=== PATIENT | male | born 1990 | race African-American/Black ===

== ENCOUNTER 2016-08-02 19:55 | Emergency (ER) | payer OTHER, MEDICARE ==
[~2016-08-02] VITALS: Ht 172.7 cm; Wt 168.3 kg
[2016-08-02 19:55] VITALS: BP 143/83
[~2016-08-02 19:55] MED LIST: ALBU1.25 NEB; ALBUTEROL INHALER INH; AMOX500C PO; FERR325C PO; FLUT1DIS3 IH; HYDR-971 PO; MULT-245 PO; ONDA4TAB10 PO; POTA10TA PO; PRED50TA PO
--- NOTE | 2016-08-02 20:18 | PHYS DOC ---
General Chief Complaint: SORE THROAT Stated Complaint: SORE THROAT SOA Time Seen by MD: 20:00 Source: patient Problems: History of Present Illness Initial Comments Patient with a female friend for "flu symptoms." Patient says that since early this morning is felt hot and cold. Is not actually take his temperature. He's had a runny nose productive of yellow mucus and cough productive of yellow sputum. He has some sore throat. There is no real earache. He has no chest pain or shortness of breath with this. There is some nausea with decreased by mouth intake but no vomiting. His no abdominal pain. There is no change amount or bladder habits except for slight amount of diarrhea this morning. He denies any focal extremity or neurologic complaints. He does have diffuse myalgias and body aches. Patient's taken some Alexsandra-Dewey and Robitussin for this at home with some help. There is no other increasing or decreasing factors. There is no known sick contacts at home. Patient's past nuchal history is Kirsten for gastric bypass surgery 2 years ago. He says he lost 200 pounds. He is a nonsmoker and nonuser of ethanol. Allergies: Coded Allergies: No Known Drug Allergies (Unverified , 08/13/13) Past Medical History Surgical History: gastric bypass Social History Smoker: non-smoker Alcohol: none Review of Systems All Other Systems: Reviewed and Negative Physical Exam General Appearance: WD/WN, no apparent distress Ear, Nose, Throat: normal ENT inspection, normal pharynx Neck: full range of motion, supple, normal inspection Respiratory: lungs clear, normal breath sounds, no respiratory distress Cardiovascular: regular rate, rhythm, no edema Gastrointestinal: non tender, soft, other Back: no CVA tenderness, no vertebral tenderness Extremities: non-tender, normal inspection, no pedal edema Neurologic/Psychiatric: no motor/sensory deficits, alert, normal mood/affect, oriented x 3 Skin: normal color Lymphatic: no adenopathy Comments Generally this is a morbidly obese black male in no acute distress. Vitals are as noted. Pertinent findings on physical exam shows ears and throat to be grossly clear. The nose is clear. Neck is supple without adenopathy or JVD. There's no meningeal signs. Chest is clear to auscultation bilaterally. Cardiovascular exam shows regular rate and rhythm without murmur. Back shows no CVA tenderness. Abdomen shows minimally morbidly obese as noted. There is no masses organomegaly or perineal findings. Extremities are clear. Patient is awake alert oriented and cooperative. Remainder of physical exam is clinically unremarkable. Orders, Labs, Meds Old charts notes several prior ER visits for strep pharyngitis, URI, asthma, chest pain, and fever with headache. Influenza A and flu swabs are negative. 2130 Patient resting comfortably in the ED. I discussed with the patient and his female friend most likely diagnosis sinusitis and bronchitis. He does have some purulent sputum and I think it's reasonable to get him started on some antibiotics. We'll also prescribe some Tussionex for cough and cold symptoms. Because the pharmacies are closed, we will give him first doses before he leaves the ER tonight. We also discussed additional home care including rest, increasing fluids, use of Advil or Tylenol as needed for fever or pain. He voices understanding of the need to follow up with primary care or return to the ER sooner as needed if worsen anyway. He looks well, in no acute discomfort distress, okay for discharge home at this time. BOBBY WHEAT MD Aug 02, 2016 20:18
[2016-08-02 21:14] LABS: INFLUENZA A PATIENT NEGATIVE (NEGATIVE); INFLUENZA B PATIENT NEGATIVE (NEGATIVE)
[2016-08-02] MEDS: HYDROCODONE/CHLORPHEN POLIS 5 ML SUS.ER.12H. PO ONE (21:45)
[2016-08-02] MEDS: AZITHROMYCIN 250 MG TABLET. PO ONE (21:45)
== END 2016-08-02 21:51 | disposition home or self-care (01) ==
LOC: ER 19:58
DX: J02.9 Acute pharyngitis, unspecified (principal); R09.89 Other specified symptoms and signs involving the circulatory and respiratory systems; R05 Cough; M79.1 Myalgia; Z98.84 Bariatric surgery status
CPT/HCPCS: 87070; 87804; 87880; 99284; J0456

== ENCOUNTER → 2017-03-09 | Outpatient (CLI) | payer OTHER ==
--- NOTE | 2017-03-09 15:30 | RAD ---
EXAM: Left foot 3 views. HISTORY: Left foot pain about the 5th toe. COMPARISON: None. FINDINGS: There is a wire-like foreign body within the plantar soft tissues underlying the 3rd metatarsal. It measures 6 mm in length. There appear to be chronic healed fracture deformities of the 4th and 5th metatarsals. No acute fractures are seen. Joint spaces and alignment are maintained. IMPRESSION: 1. 6 mm wire-like foreign body within the plantar soft tissues underlying the 3rd metatarsal.
== END | disposition home or self-care (01) ==
LOC: DXRAD 11:10
PROVIDERS: ATTEND Physician Assistant
DX: M79.5 Residual foreign body in soft tissue (principal); M79.672 Pain in left foot
CPT/HCPCS: 73630

== ENCOUNTER 2017-07-28 09:24 | Emergency (ER) | payer OTHER ==
[~2017-07-28] VITALS: Ht 172.7 cm; Wt 179.2 kg
[2017-07-28 10:02] LABS: BILIRUBIN,URINE NEG (NEG); CLARITY,URINE TURBID; COLOR,URINE PINK; GLUCOSE,URINE NEG (NEG)
[2017-07-28 10:03] LABS: BACTERIA,URINE MOD /HPF (0-FEW); NITRITE,URINE NEG (NEG); RBC,URINE >40 /HPF (0-2); SQUAMOUS EPITHELIAL CELL,UR OCC /LPF; UROBILINOGEN,URINE 0.2 mg/dL (0.2 mg/dL); WBC,URINE >40 /HPF (0-4)
[2017-07-28] MEDS ORDERED: cefTRIAXone IM 1 GM VIAL IM ONE (10:30)
[2017-07-28] MEDS ORDERED: CIPR250T30 PO (10:31)
--- NOTE | 2017-07-28 10:31 | PHYS DOC ---
Past History Past Medical History: Other Past Surgical History: No Surgical History Smoking: Non-smoker Alcohol Use: None Drug Use: None Adult General Chief Complaint Chief Complaint: BLOOD IN URINE HPI HPI 27-year-old male patient complaining of urinary frequency and dysuria for the last 1 week and hematuria since this morning without fever and chills, flank and abdominal pain. Patient denies history of UTI, STD, penile discharge, new sexual partner. Review of Systems Review of Systems Constitutional: Denies fever or chills [] Eyes: Denies change in visual acuity, redness, or eye pain [] HENT: Denies nasal congestion or sore throat [] Respiratory: Denies cough or shortness of breath [] Cardiovascular: No additional information not addressed in HPI [] GI: Denies abdominal pain, nausea, vomiting, bloody stools or diarrhea [] : Reports urinary frequency and dysuria and hematuria Musculoskeletal: Denies back pain or joint pain [] Integument: Denies rash or skin lesions [] Neurologic: Denies headache, focal weakness or sensory changes [] Endocrine: Denies polyuria or polydipsia [] All other systems were reviewed and found to be within normal limits, except as documented in this note. Current Medications Current Medications Current Medications Medications (Trade) Dose Ordered Sig/Aristeo Start Time Stop Time Status Last Admin Dose Admin Ceftriaxone Sodium (Rocephin Im) 1 gm 1X ONCE 07/28/17 10:30 07/28/17 10:31 Allergies Allergies Allergies Coded Allergies Type Severity Reaction Last Updated Verified No Known Drug Allergies 08/13/13 No Physical Exam Physical Exam Constitutional: Well developed, well nourished, no acute distress, non-toxic appearance, morbidly obese. [] HENT: Normocephalic, atraumatic Eyes: PERRLA, EOMI, conjunctiva normal, no discharge. [] Neck: Normal range of motion, no tenderness, supple, no stridor. [] Cardiovascular:Heart rate regular rhythm, no murmur [] Lungs & Thorax: Bilateral breath sounds clear to auscultation [] Abdomen: Bowel sounds normal, soft, no tenderness, no masses, no pulsatile masses. 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 [] Back: No tenderness, no CVA tenderness. [] Extremities: No tenderness, no cyanosis, no clubbing, ROM intact, no edema. [] Neurologic: Alert and oriented X 3, normal motor function, normal sensory function, no focal deficits noted. [] Psychologic: Affect normal, judgement normal, mood normal. [] Current Patient Data Vital Signs Vital Signs Date Time Temp Pulse Resp B/P (MAP) Pulse Ox O2 Delivery O2 Flow Rate FiO2 07/28/17 09:45 98.4 104 22 98 Lab Results Laboratory Tests Test 07/28/17 09:45 Urine Collection Type Void Urine Color Sophia Urine Clarity Turbid Urine pH 6.0 Urine Specific [place] 1.025 Urine Protein 100 mg/dl (NEG-TRACE) Urine Glucose (UA) Neg mg/dL (NEG) Urine Ketones (Stick) Neg mg/dL (NEG) Urine Blood Large (NEG) Urine Nitrite Neg (NEG) Urine Bilirubin Neg (NEG) Urine Urobilinogen Dipstick 0.2 mg/dL (0.2 mg/dL) Urine Leukocyte Esterase Mod (NEG) Urine RBC >40 /HPF (0-2) Urine WBC >40 /HPF (0-4) Urine Squamous Epithelial Cells Occ /LPF Urine Bacteria Mod /HPF (0-FEW) EKG EKG [] Radiology/Procedures Radiology/Procedures [] Course & Med Decision Making Course & Med Decision Making Pertinent Labs reviewed. (See chart for details) discharge: I've spoken with the patient and/or caregivers. I've explained the patient's condition, diagnosis and treatment plan based on information available to me at this time. I've answered the patient's and/or caregivers questions and addressed any concerns. The patient and/or caregivers have a good understanding the patient's diagnosis, condition and treatment plan as can be expected at this point. Vital signs have been stabilized. The patient's condition is stable for discharge from the emergency department. The patient will pursue further outpatient evaluation with her primary care provider or other designated consulting physician as outlined in the discharge instructions. Patient and/or caregivers are agreeable to this plan of care and follow-up instructions have been explained in detail. The patient and/or caregivers have received these instructions in written format and expressed understanding of these discharge instructions. The patient and her caregivers are aware that if any significant change in condition or worsening of symptoms should prompt him to immediately return to this of the closest emergency department. If an emergent department is not readily available I would encourage him to call 911. [] Dragon Disclaimer Dragon Disclaimer This electronic medical record was generated, in whole or in part, using a voice recognition dictation system. Departure Departure: Impression: Primary Impression: Urinary tract infection Additional Impressions: Acute hemorrhagic cystitis Morbid obesity Disposition: HOME, SELF-CARE (at 10:30) Condition: STABLE Referrals: CHECO WILLARD (PCP) Patient Instructions: Hematuria, Adult, Urinary Tract Infection Additional Instructions: Drink plenty of liquids Follow-up with your primary care physician in 3-5 days Return to ER if not getting better Scripts Ciprofloxacin Hcl (CIPRO) 250 Mg Tablet 1 TAB PO BID, #14 TAB Prov: ETTA CURRY MD 07/28/17 Problem Qualifiers ETTA CURRY MD Jul 28, 2017 10:31
[2017-07-28 10:44] VITALS: BP 130/84
== END 2017-07-28 10:45 | disposition home or self-care (01) ==
LOC: ER 09:24
DX: N30.01 Acute cystitis with hematuria (principal); E66.01 Morbid (severe) obesity due to excess calories; Z68.44 Body mass index [BMI] 60.0-69.9, adult
CPT/HCPCS: 81001; 87086; 96372; 99284; J0696; 87186

== ENCOUNTER 2017-08-17 19:44 | Emergency (ER) | payer OTHER ==
[~2017-08-17] VITALS: Ht 172.7 cm; Wt 179.2 kg
[~2017-08-17 19:44] MED LIST changes: +CIPR250T30 PO
[2017-08-17] MEDS ORDERED: KETOROLAC 30 MG/ML VIAL. IV ONE (20:15)
[2017-08-17] MEDS ORDERED: IV NORMAL SALINE 1,000ML 1,000 ML IV SCH (20:15)
[2017-08-17 21:15] LABS: BASO % 0 % (0-3); EOS # 0.4 x10^3/uL (0.0-0.7); EOS % 4 % (0-3); HEMATOCRIT 39.9 % (39.0-53.0); HEMOGLOBIN 12.8 g/dL (13.0-17.5); LYMPH # 2.5 x10^3/uL (1.0-4.8); LYMPH % 27 % (24-48); MEAN CORPUSCULAR HEMOGLOBIN 25 pg (25-35); MEAN CORPUSCULAR HGB CONC 32 g/dL (31-37); MEAN CORPUSCULAR VOLUME 79 fL (79-100); MONO # 1.3 x10^3/uL (0.0-1.1); MONO % 15 % (0-9); NEUT # 4.9 x10^3uL (1.8-7.7); NEUT % 54 % (31-73); PLATELET COUNT 253 x10^3/uL (140-400); RED BLOOD COUNT 5.07 x10^6/uL (4.30-5.70); RED CELL DISTRIBUTION WIDTH 14.3 % (11.5-14.5); WHITE BLOOD COUNT 9.1 x10^3/uL (4.0-11.0)
[2017-08-17 21:27] LABS: ALBUMIN 3.6 g/dL (3.4-5.0); CALCIUM 9.1 mg/dL (8.5-10.1); CREATININE 0.9 mg/dL (0.7-1.3); GFR 123.4; POTASSIUM 4.4 mmol/L (3.5-5.1); TOTAL BILIRUBIN 0.5 mg/dL (0.2-1.0); TOTAL PROTEIN 7.2 g/dL (6.4-8.2)
[2017-08-17 21:34] LABS: BACTERIA,URINE 0 /HPF (0-FEW); BILIRUBIN,URINE NEG (NEG); CLARITY,URINE CLEAR; COLOR,URINE YELLOW; GLUCOSE,URINE NEG (NEG); NITRITE,URINE NEG (NEG); RBC,URINE 0 /HPF (0-2); SQUAMOUS EPITHELIAL CELL,UR MOD /LPF; UROBILINOGEN,URINE 1 mg/dL (0.2 mg/dL); WBC,URINE OCC /HPF (0-4)
--- NOTE | 2017-08-17 22:45 | RAD ---
INDICATION: left flank and llq abdomen pain, dysuria
no contrast
no abd surgeries COMPARISON: None. TECHNIQUE: Axial CT images obtained through the abdomen and pelvis without contrast. Limited assessment of solid organ structures and vasculature secondary to lack of intravenous contrast. One or more of the following individualized dose reduction techniques were utilized for this examination: 1. Automated exposure control; 2. Adjustment of the mA and/or kV according to patient size; 3. Use of iterative reconstruction technique. FINDINGS: Abdominal aorta is not grossly aneurysmal. No intrahepatic bile duct dilation. Postoperative changes to the stomach. No peripancreatic fluid collection. Questionable low density focus at the anterior aspect of the pancreatic head measuring up to about 12 mm. There are some scattered prominent lymph nodes with questionable mild haziness to the mesentery. Spleen unremarkable. No left-sided hydronephrosis. Urinary bladder is partially distended at time of exam. Suspected nonobstructive 1 mm right renal stone. No right-sided hydronephrosis. Suspected appendix does not appear grossly inflamed. No dilated loops of bowel to suggest obstruction. IMPRESSION: No definite hydronephrosis. The appendix does not appear grossly inflamed. There is some questionable mild haziness to the fat in a small portion of the mesentery. This is a questionable finding and could be artifactual in nature but causes such as mild mesenteric adenitis not excluded. At the anterior aspect of the pancreatic head there is a questionable low density region identified. Could be artifactual in nature unless the patient has had history of pancreatitis to suggest alternative causes such as a small pseudocyst. A pancreatic neoplasm would be very unlikely in a patient of this age. Electronically signed by: Fan Dias MD (08/17/2017 10:41 PM) [facility]
--- NOTE | 2017-08-17 23:40 | PHYS DOC ---
Past History Past Medical History: Other Past Surgical History: No Surgical History Smoking: Non-smoker Alcohol Use: None Drug Use: None Adult General Chief Complaint Chief Complaint: ABDOMINAL PAIN HPI HPI 27-year-old -Chinese male with a history of morbid obesity at 395 pounds no prior abdominal problems or chronic abdominal history now presents the emergency department complaining of brisk onset of left upper abdominal crampy pain which is now improved. Pain started earlier tonight and patient feels it radiated to his left flank. He's never had a kidney stone but he is concerned about the possibility. Patient has been recently treated for urinary tract infection. He denies fevers chills sweats or shaking chills. As stated the onset of pain was prompt and not gradual throughout the day. It is not dramatically improved. Pain was not worse with movement. No nausea vomiting or diarrhea. Normal bowel bladder habits. No other complaints Review of Systems Review of Systems Constitutional: Denies fever or chills [] Eyes: Denies change in visual acuity, redness, or eye pain [] HENT: Denies nasal congestion or sore throat [] Respiratory: Denies cough or shortness of breath [] Cardiovascular: No additional information not addressed in HPI [] GI: Denies abdominal pain, nausea, vomiting, bloody stools or diarrhea [] : Denies dysuria or hematuria [] Musculoskeletal: Denies back pain or joint pain [] Integument: Denies rash or skin lesions [] Neurologic: Denies headache, focal weakness or sensory changes [] Endocrine: Denies polyuria or polydipsia [] All other systems were reviewed and found to be within normal limits, except as documented in this note. Current Medications Current Medications Current Medications Medications (Trade) Dose Ordered Sig/Aristeo Start Time Stop Time Status Last Admin Dose Admin Ketorolac Tromethamine (Toradol) 30 mg 1X ONCE 08/17/17 20:15 08/17/17 20:19 DC 08/17/17 20:15 30 MG Sodium Chloride 1,000 ml @ 1,000 mls/hr Q1H 08/17/17 20:15 08/17/17 20:15 1,000 MLS/HR Allergies Allergies Allergies Coded Allergies Type Severity Reaction Last Updated Verified No Known Drug Allergies 08/13/13 No Physical Exam Physical Exam Morbidly obese patient smiling comfortable appearing. No acute distress. Mild left upper quadrant tenderness without guarding or rebound no mass or megaly. No CVA tenderness. Nontender lower abdomen and right upper quadrant. Otherwise benign exam Constitutional: Well developed, well nourished, no acute distress, non-toxic appearance. [] HENT: Normocephalic, atraumatic, bilateral external ears normal, oropharynx moist, no oral exudates, nose normal. [] Eyes: PERRLA, EOMI, conjunctiva normal, no discharge. [] Neck: Normal range of motion, no tenderness, supple, no stridor. [] Cardiovascular:Heart rate regular rhythm, no murmur [] Lungs & Thorax: Bilateral breath sounds clear to auscultation [] Abdomen: Bowel sounds normal, soft, no tenderness, no masses, no pulsatile masses. [] Skin: Warm, dry, no erythema, no rash. [] Back: No tenderness, no CVA tenderness. [] Extremities: No tenderness, no cyanosis, no clubbing, ROM intact, no edema. [] Neurologic: Alert and oriented X 3, normal motor function, normal sensory function, no focal deficits noted. [] Psychologic: Affect normal, judgement normal, mood normal. [] Current Patient Data Lab Results Laboratory Tests Test 08/17/17 20:09 08/17/17 20:47 Urine Collection Type Unknown Urine Color Yellow Urine Clarity Clear Urine pH 7.0 Urine Specific [place] 1.020 Urine Protein Neg (NEG-TRACE) Urine Glucose (UA) Neg mg/dL (NEG) Urine Ketones (Stick) Neg mg/dL (NEG) Urine Blood Neg (NEG) Urine Nitrite Neg (NEG) Urine Bilirubin Neg (NEG) Urine Urobilinogen Dipstick 1 mg/dL (0.2 mg/dL) Urine Leukocyte Esterase Neg (NEG) Urine RBC 0 /HPF (0-2) Urine WBC Occ /HPF (0-4) Urine Squamous Epithelial Cells Mod /LPF Urine Bacteria 0 /HPF (0-FEW) Urine Mucus Slight /LPF White Blood Count 9.1 x10^3/uL (4.0-11.0) Red Blood Count 5.07 x10^6/uL (4.30-5.70) Hemoglobin 12.8 g/dL (13.0-17.5) L Hematocrit 39.9 % (39.0-53.0) Mean Corpuscular Volume 79 fL (79-100) Mean Corpuscular Hemoglobin 25 pg (25-35) Mean Corpuscular Hemoglobin Concent 32 g/dL (31-37) Red Cell Distribution Width 14.3 % (11.5-14.5) Platelet Count 253 x10^3/uL (140-400) Neutrophils (%) (Auto) 54 % (31-73) Lymphocytes (%) (Auto) 27 % (24-48) Monocytes (%) (Auto) 15 % (0-9) H Eosinophils (%) (Auto) 4 % (0-3) H Basophils (%) (Auto) 0 % (0-3) Neutrophils # (Auto) 4.9 x10^3uL (1.8-7.7) Lymphocytes # (Auto) 2.5 x10^3/uL (1.0-4.8) Monocytes # (Auto) 1.3 x10^3/uL (0.0-1.1) H Eosinophils # (Auto) 0.4 x10^3/uL (0.0-0.7) Basophils # (Auto) 0.0 x10^3/uL (0.0-0.2) Sodium Level 139 mmol/L (136-145) Potassium Level 4.4 mmol/L (3.5-5.1) Chloride Level 103 mmol/L (98-107) Carbon Dioxide Level 27 mmol/L (21-32) Anion Gap 9 (6-14) Blood Urea Nitrogen 19 mg/dL (8-26) Creatinine 0.9 mg/dL (0.7-1.3) Estimated GFR (Cockcroft-Gault) 123.4 BUN/Creatinine Ratio 21 (6-20) H Glucose Level 95 mg/dL (70-99) Calcium Level 9.1 mg/dL (8.5-10.1) Total Bilirubin 0.5 mg/dL (0.2-1.0) Aspartate Amino Transferase (AST) 194 U/L (15-37) H Alanine Aminotransferase (ALT) 137 U/L (16-63) H Alkaline Phosphatase 159 U/L (46-116) H Total Protein 7.2 g/dL (6.4-8.2) Albumin 3.6 g/dL (3.4-5.0) Albumin/Globulin Ratio 1.0 (1.0-1.7) Lipase 86 U/L (73-393) EKG EKG [] Radiology/Procedures Radiology/Procedures [] Course & Med Decision Making Course & Med Decision Making Pertinent Labs and Imaging studies reviewed. (See chart for details) Signs and symptoms consistent with bowel colic versus ureteral colic. Urinalysis unremarkable. NSAIDs given IV. Patient's pain well controlled. Onset of pain was quite brisk and is now essentially resolved. A benign exam. CT unremarkable and labs with elevated transaminases. This appears to be an incidental finding as patient has no right upper quadrant symptoms or findings and no prior history of liver disease. These were to follow up with his primary care physician regarding these values for reevaluation and further workup as needed. Patient asymptomatic on reevaluation prior to discharge. He has significant other agree with outpatient follow-up and strict return precautions given [] Dragon Disclaimer Dragon Disclaimer This electronic medical record was generated, in whole or in part, using a voice recognition dictation system. Departure Departure: Impression: Primary Impression: Abdominal pain Additional Impressions: Elevated transaminase level Morbid obesity Disposition: 01 HOME, SELF-CARE Condition: GOOD Referrals: CHECO WILLARD (PCP) Patient Instructions: Abdominal Pain (Nonspecific) Additional Instructions: It is not clear what the cause for your abdominal pain was today. The CAT scan was negative for kidney stone. No other acute abnormalities were visible. Your laboratory studies were normal except your transaminases were elevated. These are enzymes associate it with your liver and could indicate liver problems so it will require further workup by your doctor. Take ibuprofen every 6 hours and Tylenol every 4 hours if you have any discomfort. You been given a copy of the CT results to follow up with your doctor as well as the laboratory results to discuss your elevated transaminases and arrange further workup and treatment as needed. See her doctor in 1-2 days and return immediately for new severe worsening symptoms Problem Qualifiers ROSINA BERGER MD August 17, 2017 23:40
[2017-08-17 23:45] VITALS: BP 129/68
== END 2017-08-17 23:48 | disposition home or self-care (01) ==
LOC: ER 19:44
DX: R10.12 Left upper quadrant pain (principal); E66.01 Morbid (severe) obesity due to excess calories; R74.0 Nonspecific elevation of levels of transaminase and lactic acid dehydrogenase [LDH]; Z68.44 Body mass index [BMI] 60.0-69.9, adult
CPT/HCPCS: 36415; 74176; 80053; 81001; 83690; 85025; 96374; 99285; J1885; J7030